=== PATIENT | male | born 1945 | race Hispanic/Latino ===

== ENCOUNTER 2023-04-20 02:50 | Inpatient (IN) | payer MEDICARE, OTHER ==
[2023-04-20] MEDS ORDERED: Magnesium 2 GM/50 ML BAG (IN WATER) ONE (03:15)
[2023-04-20] MEDS ORDERED: Digoxin 0.5 MG/2 ML AMP ONE (03:15)
[2023-04-20 04:01] LABS: #Basophils 0.1 thou/uL (0.0-0.2); #Eosinphils 0.7 thou/uL (0.0-0.7); #Monocytes 1.4 thou/uL (0.11-0.59); %Basophils 0.6 % (0.0-1.0); %Eosinophils 3.9 % (0.0-10.0); %Lymphocytes 20.4 % (21.0-51.0); %Monocytes 7.8 % (0.0-10.0); %Neutrophils 63.9 % (42.0-75.0); Hematocrit 47.8 % (42.0-52.0); Hemoglobin 15.9 g/dL (14.0-18.0); Mean Corpuscular HGB CONC 33.3 g/dL (32.0-36.0); Mean Corpuscular Hemoglobin 32.3 pg (27.0-31.0); Mean Corpuscular Volume 97.2 fl (78.0-98.0); Mean Platelet Volume 9.9 fL (7.4-10.4); Platelet Count 202 10x3/uL (130-400); RBC Distribution Width 13.6 % (11.5-14.5); Red Blood Cell (RBC) Count 4.92 mill/uL (4.70-6.10); White Blood Cell (WBC) Count 17.2 10x3/uL (4.8-10.8)
[2023-04-20 04:21] LABS: ALT (SGPT) 43 U/L (8-55); AST (SGOT) 23 U/L (5-34); Albumin 3.6 g/dL (3.4-4.8); Alkaline Phosphatase 58 U/L (40-110); Anion Gap 10 mmol/L (10-20); BUN (Urea Nitrogen) 18 mg/dL (8.4-25.7); Bilirubin, Total 0.4 mg/dL (0.2-1.2); Calc. Creatinine Clearance 0 mL/min (70-130); Calcium 8.3 mg/dL (7.8-10.44); Carbon Dioxide 19 mmol/L (23-31); Chloride 112 mmol/L (98-107); Estimated GFR 72; Globulin 2.5 g/dL (2.4-3.5); Glucose 138 mg/dL (83-110); Potassium 3.9 mmol/L (3.5-5.1); Protein, Total 6.1 g/dL (5.8-8.1); Sodium 137 mmol/L (136-145)
[2023-04-20 04:26] LABS: Troponin I 0.014 ng/mL (< 0.028)
[2023-04-20 05:08] LABS: SARS-CoV-2 NAA Rapid Test Not Detected (NotDetected)
[2023-04-20] MEDS ORDERED: Furosemide 40 MG/4 ML VIAL ONE (05:41)
[2023-04-20 05:57] LABS: Bacteria/HPF None Seen HPF (None Seen); Bilirubin Negative (Negative); Blood, Urine Negative (Negative); CAUTI Indications for Culture Dysuria,urgency,freq; Clarity Clear (Clear); Glucose, Urine (Dipstick) Normal (Negative); Ketone, Urine Negative (Negative); Leukocyte Negative Leu/uL (Negative); Nitrite Negative (Negative); Protein, Urine (Dipstick) Negative (Neg-Trace); RBC/HPF 0-3 HPF (0-3); Specific Gravity, Urine 1.045 (1.002-1.036); Squamous Epithelial None Seen HPF (0-3); Urobilinogen Normal mg/dL (Less than 2); WBC/HPF 0-3 HPF (0-3); pH, Urine 5.5 (5.0-9.0)
[2023-04-20 06:01] LABS: Urine Culture Reflex No No
[2023-04-20] MEDS ORDERED: Ipratropium Bromide 2.5 ml Neb NEB PRN (08:52)
[2023-04-20] MEDS ORDERED: Ondansetron ODT 4 MG TAB PO PRN (08:52)
[2023-04-20] MEDS ORDERED: Docusate 100 MG CAP PO PRN (08:52)
[2023-04-20] MEDS ORDERED: Nitroglycerin 0.4 MG TAB (25 Tab Bottle) SL PRN (08:52)
[2023-04-20] MEDS ORDERED: Ondansetron PF 4 MG/2 ML Vial IVP PRN (08:52)
[2023-04-20] MEDS ORDERED: Acetaminophen 325 MG TAB PO PRN (08:52)
[2023-04-20] MEDS ORDERED: Electrolyte Replacement Protocol 1 EACH FS SCH (09:00)
[2023-04-20] MEDS ORDERED: LevoFLOXacin 750 mg/D5W 750 MG in Premix Bag 1 BAG IVPB SCH (09:00)
[2023-04-20] MEDS ORDERED: HumaLOG 300 UNITS/3 ML VIAL SC PRN ×2 (09:01)
[2023-04-20] MEDS ORDERED: Dextrose 50% Abboject 50 ML SYRINGE SLOW IVP PRN (09:01)
[2023-04-20] MEDS ORDERED: Dextrose 5% in Water 1,000 ML IV PRN (09:01)
[2023-04-20] MEDS ORDERED: Glucagon 1 MG/ML KIT IM PRN (09:01)
[2023-04-20] MEDS ORDERED: Electrolyte Replacement Protocol FS PRN (09:45)
[2023-04-20] MEDS: Benzonatate 100 MG CAP PO PRN (10:03)
[2023-04-20] MEDS: methylPREDNISolone Sod Succ 40 MG VIAL IVP SCH ×2 (10:03→20:05)
[2023-04-20] MEDS: Metoprolol Tartrate 25 MG TAB PO SCH ×2 (10:03→20:05)
[2023-04-20] MEDS ORDERED: Amiodarone 200 MG TAB PO SCH ×2 (10:33→10:45)
[2023-04-20] MEDS ORDERED: Iopamidol-370 76% 500 ML MDV (1 ML CHARGE) ONE (10:59)
[2023-04-20] MEDS ORDERED: Spironolactone 25 MG TAB PO SCH (11:00)
[2023-04-20] MEDS ORDERED: Furosemide 40 MG/4 ML VIAL SLOW IVP SCH (11:00)
[2023-04-20] MEDS ORDERED: Potassium Chloride 20 MEQ TAB PO SCH (12:00)
[2023-04-20] MEDS: Ipratropium/Albuterol 3 ML NEB NEB SCH ×2 (13:35→19:22)
[2023-04-20] MEDS: Furosemide 20 MG/2 ML VIAL SLOW IVP SCH (14:45)
[2023-04-20] MEDS: Amiodarone 200 MG TAB PO SCH ×2 (14:45→20:05)
[2023-04-20 17:37] VITALS: BMI 31.2
[2023-04-20] MEDS: Mometasone/Formoterol 200/5 60 PUFF INH SCH (19:24)
[2023-04-20] MEDS: Tamsulosin HCl 0.4 MG CAP PO SCH (20:05)
[2023-04-20] MEDS: Atorvastatin Calcium 40 MG TAB PO SCH (20:05)
[2023-04-20] MEDS: Apixaban 5 MG TAB PO SCH (20:05)
[2023-04-21] MEDS: Ipratropium/Albuterol 3 ML NEB NEB SCH ×5 (01:31→23:43)
[2023-04-21 04:22] LABS: #Monocytes 0.4 thou/uL (0.11-0.59); #Neutrophils 14.4 thou/uL (1.40-6.50); %Basophils 0.1 % (0.0-1.0); %Lymphocytes 6.5 % (21.0-51.0); %Monocytes 2.2 % (0.0-10.0); Hematocrit 46.6 % (42.0-52.0); Hemoglobin 15.9 g/dL (14.0-18.0); Mean Corpuscular HGB CONC 34.1 g/dL (32.0-36.0); Mean Corpuscular Hemoglobin 32.4 pg (27.0-31.0); Mean Corpuscular Volume 94.9 fl (78.0-98.0); Mean Platelet Volume 10.1 fL (7.4-10.4); Platelet Count 180 10x3/uL (130-400); RBC Distribution Width 13.2 % (11.5-14.5); Red Blood Cell (RBC) Count 4.91 mill/uL (4.70-6.10); White Blood Cell (WBC) Count 16.2 10x3/uL (4.8-10.8)
[2023-04-21 04:48] LABS: Anion Gap 5 mmol/L (10-20); BUN (Urea Nitrogen) 31 mg/dL (8.4-25.7); Calc. Creatinine Clearance 58 mL/min (70-130); Calcium 8.9 mg/dL (7.8-10.44); Carbon Dioxide 25 mmol/L (23-31); Chloride 104 mmol/L (98-107); Estimated GFR 49; Glucose 206 mg/dL (83-110); Magnesium 2.2 mg/dL (1.6-2.6); Potassium 4.1 mmol/L (3.5-5.1); Sodium 130 mmol/L (136-145)
[2023-04-21] MEDS: Levothyroxine Sodium 25 MCG TAB PO SCH (07:23)
[2023-04-21] MEDS: Mometasone/Formoterol 200/5 60 PUFF INH SCH ×2 (07:23→18:35)
[2023-04-21] MEDS: Furosemide 20 MG/2 ML VIAL SLOW IVP SCH (07:23)
[2023-04-21] MEDS ORDERED: Spironolactone 25 MG TAB PO SCH (08:00)
[2023-04-21] MEDS: Amiodarone 200 MG TAB PO SCH ×3 (09:43→20:34)
[2023-04-21] MEDS: Metoprolol Tartrate 25 MG TAB PO SCH ×2 (09:44→20:34)
[2023-04-21] MEDS: Apixaban 5 MG TAB PO SCH ×2 (09:44→20:34)
[2023-04-21] MEDS: methylPREDNISolone Sod Succ 40 MG VIAL IVP SCH (09:45)
[2023-04-21] MEDS: Empagliflozin 10 MG TAB PO SCH (09:45)
[2023-04-21] MEDS: Atorvastatin Calcium 40 MG TAB PO SCH (20:34)
[2023-04-21] MEDS: Tamsulosin HCl 0.4 MG CAP PO SCH (20:34)
[2023-04-22] MEDS: Levothyroxine Sodium 25 MCG TAB PO SCH (05:22)
[2023-04-22 05:27] LABS: Anion Gap 15 mmol/L (10-20); BUN (Urea Nitrogen) 40 mg/dL (8.4-25.7); Calc. Creatinine Clearance 64 mL/min (70-130); Calcium 8.9 mg/dL (7.8-10.44); Carbon Dioxide 22 mmol/L (23-31); Chloride 103 mmol/L (98-107); Estimated GFR 55; Glucose 135 mg/dL (83-110); Magnesium 2.3 mg/dL (1.6-2.6); Potassium 4.6 mmol/L (3.5-5.1); Sodium 135 mmol/L (136-145)
[2023-04-22] MEDS ORDERED: LevoFLOXacin 500 MG TAB PO SCH (06:00)
[2023-04-22] MEDS: Ipratropium/Albuterol 3 ML NEB NEB SCH ×2 (06:27→12:42)
[2023-04-22] MEDS: Mometasone/Formoterol 200/5 60 PUFF INH SCH (06:28)
[2023-04-22] MEDS: Benzonatate 100 MG CAP PO PRN (06:45)
[2023-04-22] MEDS ORDERED: predniSONE 20 MG TAB PO SCH (08:00)
[2023-04-22] MEDS ORDERED: LevoFLOXacin 750 mg/D5W 750 MG in Premix Bag 1 BAG IVPB SCH (09:00)
[2023-04-22] MEDS ORDERED: Lisinopril 2.5 MG TAB PO SCH (10:00)
[2023-04-22] MEDS ORDERED: Carvedilol 6.25 MG TAB PO SCH ×2 (10:00→17:00)
[2023-04-22] MEDS: Empagliflozin 10 MG TAB PO SCH (11:03)
[2023-04-22] MEDS: Apixaban 5 MG TAB PO SCH (11:03)
[2023-04-22] MEDS: Amiodarone 200 MG TAB PO SCH (11:03)
[2023-04-22] MEDS: Metoprolol Tartrate 25 MG TAB PO SCH (11:04)
[2023-04-22 11:48] VITALS: BP 134/77; TEMP 97.6
[2023-04-22] MEDS ORDERED: Amiodarone 200 MG TAB PO SCH (15:00)
[2023-04-23] MEDS ORDERED: Lisinopril 2.5 MG TAB PO SCH (09:00)
== END 2023-04-22 15:15 | disposition home or self-care (01) | DRG 291 ==
LOC: ERS 02:50 → SUATTDRO 02:50 → IMCU/EMU 06:15 → 2SW 04-21 15:55
PROVIDERS: ADMIT Student in an Organized Health Care Education/Training Program; ATTEND Family Medicine
DX: I13.0 Hypertensive heart and chronic kidney disease with heart failure and stage 1 through stage 4 chronic kidney disease, or unspecified chronic kidney disease (principal); I50.23 Acute on chronic systolic (congestive) heart failure; J96.01 Acute respiratory failure with hypoxia; N17.9 Acute kidney failure, unspecified; I47.20 Ventricular tachycardia, unspecified; I48.0 Paroxysmal atrial fibrillation; E78.5 Hyperlipidemia, unspecified; E03.9 Hypothyroidism, unspecified; J44.9 Chronic obstructive pulmonary disease, unspecified; N18.9 Chronic kidney disease, unspecified; E11.22 Type 2 diabetes mellitus with diabetic chronic kidney disease; I25.10 Atherosclerotic heart disease of native coronary artery without angina pectoris; Z20.822 Contact with and (suspected) exposure to COVID-19; N40.0 Benign prostatic hyperplasia without lower urinary tract symptoms; F17.210 Nicotine dependence, cigarettes, uncomplicated; E66.9 Obesity, unspecified; I44.0 Atrioventricular block, first degree; Z90.49 Acquired absence of other specified parts of digestive tract; Z95.5 Presence of coronary angioplasty implant and graft; Z79.84 Long term (current) use of oral hypoglycemic drugs; Z79.899 Other long term (current) drug therapy; I25.2 Old myocardial infarction; Z98.890 Other specified postprocedural states; Z68.31 Body mass index [BMI] 31.0-31.9, adult
CPT/HCPCS: 36415; 36416; 71045; 71275; 80048; 80053; 81001; 83735; 83880; 84439; 84443; 84484; 85025; 85379; 93005; 93010; 93306; 94640; 94760; 96365; 96375; J1160; J1650; J1815; J1940; J1956; J2920; J3475; J7512; J7620; Q9967; U0002